=== PATIENT | male | born 1970 | race Caucasian/White ===

== ENCOUNTER 2017-01-25 09:20 | Day surgery (SDC) | payer MEDICAID ==
--- NOTE | 2017-01-24 16:59 | GHP ---
[f rep st] PREOP HISTORY AND PHYSICAL DATE OF ADMISSION: 01/25/2017 ADMISSION DIAGNOSIS: Right testicular mass. HISTORY OF PRESENT ILLNESS: This is a 46-year-old gentleman who has had a right testicular mass disc overed approximately 2 weeks ago. He has had an ultrasound that confirmed he has a solid mass in the testicle. He is admitted for a right radical inguinal orchiectomy. His family history is significa nt that his dad had prostate cancer. PAST MEDICAL HISTORY: Spermatocele. PAST SURGERY: Spinal surgery. MEDICATIONS: None. ALLERGIES: None. FAMILY HISTORY: Prostate cancer. SOCIAL HISTORY: Rare alcohol consumption. Former tobacco smoker. REVIEW OF SYSTEMS: Negative cardiac, respiratory, GI, endocrine, and he has no genitourinary symptom s, and he denies any gynecomastia, back pain, or weight loss. PHYSICAL EXAMINATION: VITAL SIGNS: Stable. CHEST: Clear. HEART: Regular rate and rhythm. ABDOM EN: Normal. No organomegaly, rebound, or guarding. LOWER EXTREMITIES: Normal at the present time. ASSESSMENT/PLAN: He is admitted for a right radical inguinal orchiectomy. He has had a CT scan of t he chest that reveals a small 4-5 mm nodule in the posterior right middle lobe. No suspicious findin gs noted in the retroperitoneal space on the CT scan. On his preop laboratory values, he has had an alpha fetoprotein that is 11.4, and basic metabolic panel is normal with creatinine of 0.7, and remai radha preop labs are pending. He is admitted as an outpatient for the above procedure. /[id number]/MODL
[2017-01-25] MEDS ORDERED: LIDOCAINE 1% 2 ML INJ ID PRN (09:34)
[2017-01-25] MEDS ORDERED: LR 1,000 ML IV ONE (09:34)
[2017-01-25] MEDS ORDERED: BUPIVACAINE 0.5% 30 ML SDV ONE (09:44)
[2017-01-25] MEDS ORDERED: MIDAZOLAM 2 MG/2 ML VIAL IVP ONE (10:34)
--- NOTE | 2017-01-25 10:36 | PDANEPAE ---
ANE History of Present Illness right orchiectomy ANE Past Medical History - Cardiovascular History Hx Hypertension: No Hx Arrhythmias: No Hx Chest Pain: No Hx Coronary Artery / Peripheral Vascular Disease: No Hx CHF / Valvular Disease: No Hx Palpitations: No Cardiovascular History Comment: steady BP - Pulmonary History Hx COPD: No Hx Asthma/Reactive Airway Disease: No Hx Recent Upper Respiratory Infection: No Hx Oxygen in Use at Home: No Hx Sleep Apnea: No Sleep Apnea Screening Result - Last Documented: Negative - Neurologic History Hx Cerebrovascular Accident: No Hx Seizures: No Hx Dementia: No - Endocrine History Hx Diabetes: No - Renal History Hx Renal Disorders: Yes Renal History Comment: R testicular mass - Liver History Hx Hepatic Disorders: No - Neurological & Psychiatric Hx Hx Neurological and Psychiatric Disorders: No - Cancer History Hx Cancer: Yes Cancer History Comment: R testicular mass- cancer seen w/ultrasound - Congenital Disorder History Hx Congenital Disorders: No - GI History Hx Gastrointestinal Disorders: No - Other Health History Other Health History: n/a - Chronic Pain History Chronic Pain: No - Surgical History Prior Surgeries: GENIA for herniated disc w/sedation. wisdom teeth extraction- sedation ANE Review of Systems Review of Systems: - Exercise capacity METS (RN): 4 METS ANE Patient History - Allergies Allergies/Adverse Reactions: No Known Allergies Allergy (Unverified 01/24/17 15:41) - Home Medications Home Medications: NK [No Known Home Meds] 01/24/17 [Last Taken Unknown] - NPO status NPO Status: no food or drink >8 hours NPO Since - Liquids (Date): 01/25/17 NPO Since - Liquids (Time): 08:00 NPO Since - Solids (Date): 01/24/17 NPO Since - Solids (Time): 20:00 - Smoking Hx Smoking Status: Former smoker ANE Labs/Vital Signs - Vital Signs Vital Signs: reviewed preoperatively; see RN documention for details Blood Pressure: 142/88 Heart Rate: 66 Respiratory Rate: 14 O2 Sat (%): 96 Height: 190.5 cm Weight: 107.955 kg ANE Physical Exam - Airway Neck exam: FROM Mallampati Score: Class 1 Mouth exam: normal dental/mouth exam - Pulmonary Pulmonary: no respiratory distress - Cardiovascular Cardiovascular: regular rate and rhythym - ASA Status ASA Status: I ANE Anesthesia Plan Anesthesia Plan: general endotracheal anesthesia
[2017-01-25] MEDS ORDERED: MIDAZOLAM 2 MG/2 ML VIAL ONE (10:37)
[2017-01-25] MEDS ORDERED: ONDANSETRON 4 MG/2 ML VIAL ONE (10:37)
[2017-01-25] MEDS ORDERED: DEXAMETHASONE 4 MG/ML VIAL ONE (10:37)
[2017-01-25] MEDS ORDERED: ROCURONIUM 50 MG/5 ML VIAL ONE (10:37)
[2017-01-25] MEDS ORDERED: ceFAZolin 2 GM/SWFI 2 GM/20 ML SYR IVP ONE (10:37)
[2017-01-25] MEDS ORDERED: fentaNYL 100 MCG/2 ML INJ ONE ×2 (10:38)
[2017-01-25] MEDS ORDERED: PROPOFOL 200 MG/20 ML VIAL ONE (10:38)
--- NOTE | 2017-01-25 10:38 | PDHPUP ---
History & Physical Update H&P update statement: This history and physical update is based on an assessment of the patient which was completed after admission or registration (within 24 hours), but prior to the surgery/procedure. H&P update: H&P reviewed & patient examined, no change in patient's condition since H&P completed
[2017-01-25] MEDS ORDERED: HYDROmorphONE/DILAUDID 1 MG/ML INJ IVP PRN (11:41)
[2017-01-25] MEDS ORDERED: PROMETHAZINE HCL 25 MG/ML INJ IVP PRN (11:41)
[2017-01-25] MEDS ORDERED: MEPERIDINE 25 MG/ML SYR IVP PRN (11:41)
[2017-01-25] MEDS ORDERED: ONDANSETRON 4 MG/2 ML VIAL IVP PRN (11:41)
[2017-01-25] MEDS ORDERED: fentaNYL 100 MCG/2 ML INJ IVP PRN (11:41)
[2017-01-25] MEDS ORDERED: NALOXONE HCL 0.4 MG/ML INJ IVP PRN (11:41)
[2017-01-25] MEDS ORDERED: HYDROmorphONE/DILAUDID 2 MG/ML INJ ONE (11:48)
--- NOTE | 2017-01-25 12:21 | POSTANESTH ---
Post Anesthetic Evaluation Cardiovascular Status: Normal, Stable Respiratory Status: Normal, Stable Level of Consciousness/Mental Status: Can Participate in Eval Pain Control: Adequate, Prn Tx Ordered Nausea/Vomiting Control: Adequate, Prn Tx Ordered Complications Possibly Related to Anesthesia: None Noted
--- NOTE | 2017-01-25 12:32 | POSTOPPROG ---
Post Op Note Date of Operation: 01/25/17 Surgeon: North Liz Anesthesia: LMA Pre-op Diagnosis: rt testis mass Post-op Diagnosis: same Procedure: orchiectomy Inf/Abcess present in the surg proc area at time of surgery?: No EBL: Minimal Specimen(s): sent--dictated
[2017-01-25 12:39] VITALS: O2SAT 97
[2017-01-25 13:22] VITALS: BP 136/93; PULSE 56; RESP 14; TEMP 97.7
--- NOTE | 2017-01-25 19:14 | GOP ---
[f rep st] OPERATIVE REPORT DATE OF OPERATION: 01/25/2017 SURGEON: North Liz MD PREOPERATIVE DIAGNOSIS: Right testicular mass. POSTOPERATIVE DIAGNOSIS: Right testicular mass. PROCEDURE PERFORMED: FINDINGS: ESTIMATED BLOOD LOSS: Less than 5 mL. DESCRIPTION OF PROCEDURE: The patient underwent general anesthesia after appropriate time-out and do cumentation of side and patient name and sterile field provided with Ioban and sterile drapes. Local field injections done with Marcaine and then a skin incision was made, carried down through skin and subcutaneous fat. I could identify the spermatic cord as it exited the external ring and opened up the external ring. At this point I could do a high ligation of the spermatic cord and vas deferens a fter they were . That was done with an 0 Vicryl around the spermatic cord, double ligated w ith 0 Vicryl suture ligature and then the vas deferens was ligated with Vicryl and then the silk was placed at the most distal end of that dissection. We then brought the testicle out of the right ariana scrotum. Hemostasis with clips and electrocautery. At the end of the procedure, the layers were jenifer sed using 3-0 Vicryl for closing the fascia layers in the subcutaneous tissue and then the dermis was closed with 4-0 Monocryl. Dermabond placed. PROCEDURE: Right radical inguinal orchiectomy. COMPLICATIONS: None. SPECIMENS SENT TO PATHOLOGY: Grossly the tumor had an appearance of fish flesh. IMPRESSION: Seminoma grossly. /[id number]/MODL
== END 2017-01-25 13:30 | disposition home or self-care (01) ==
LOC: FSGY 09:20
PROVIDERS: ATTEND Specialist
PROC: 0VT90ZZ Resection of Right Testis, Open Approach (ICD-10-PCS; principal; 2017-01-25 10:45)
DX: C62.11 Malignant neoplasm of descended right testis (principal); R91.1 Solitary pulmonary nodule
CPT/HCPCS: J1100; J1170; J2250; J2405; J2704; J3010

== ENCOUNTER 2017-01-26 22:30 | Emergency (ER) | payer MEDICAID ==
[2017-01-26 22:34] VITALS: BP 139/81; PULSE 75; RESP 18; TEMP 98.2; O2SAT 94
[2017-01-26] MEDS ORDERED: CEPHALEXIN 500 MG CAP PO ONE (22:54)
[2017-01-26] MEDS ORDERED: CEPHALEXIN 500MG PREPACK#4 BTL TAKEHOME ONE (22:54)
--- NOTE | 2017-01-26 22:58 | EDPHY ---
H & P Stated Complaint: sx on R groin 01/25 swelling/redness/pain to site HPI/ROS: Chief complaint: Surgical incisions site pain and redness History of present illness: This is a 46-year-old male who presents to the emergency department complaining of pain and redness at the site of the surgical incision. Patient had surgery yesterday to remove his right testicle secondary to testicular cancer per this was performed by Dr. Liz. He states today's started developing increasing pain at the surgical incisions site with some increasing redness. Reports some discomfort in the scrotum. No skin changes or edema noted. However the wound is not opening up. There is no discharge from the wound. There is no swelling. There is no fever. - Personal History Current Tetanus/Diphtheria Vaccine: Unsure - Medical/Surgical History Hx Asthma: No Hx Chronic Respiratory Disease: No Hx Diabetes: No Hx Cardiac Disease: No Hx Renal Disease: No Hx Cirrhosis: No Hx Alcoholism: No Hx HIV/AIDS: No Hx Splenectomy or Spleen Trauma: No Other PMH: testicular CA, herniated disc, - Social History Smoking Status: Former smoker - Physical Exam Exam: General: Alert, nontoxic Skin: There is a surgical incision in the right inguinal region. There is no dehiscence. No discharge from the wound. There is increasing erythema around the wound extending from the wound. No induration or fluctuance. Genitourinary: There is no discharge from the penis. The penis is unremarkable. The scrotum is unremarkable without erythema or edema to the scrotum itself. There is mild discomfort on palpation of the right side of the scrotum. Left side unremarkable. Constitutional: Initial Vital Signs Temperature (C) 36.8 C 01/26/17 22:31 Heart Rate 75 01/26/17 22:31 Respiratory Rate 18 01/26/17 22:31 Blood Pressure 139/81 H 01/26/17 22:31 O2 Sat (%) 94 01/26/17 22:31 O2 Delivery Mode Room Air Allergies/Adverse Reactions: No Known Allergies Allergy (Verified 01/26/17 22:34) Home Medications: Medication Instructions Recorded Cephalexin [Keflex] 500 mg PO QID 6 Days cap 01/26/17 Medical Decision Making ED Course/Re-evaluation: Patient seen under the supervision of my secondary supervising physician Dr. Temo MacDade. Patient presents to the emergency department for pain and redness around his surgical incisions site. He does appear to be developing a localized cellulitis. No evidence of complications such as dehiscence or abscess formation etc. I have consulted with his Urology group, Dr. Liz's physician biology laboratory assistant. She is comfortable with patient being placed on Keflex. He can be discharged home. Home care is discussed. He is to follow up with Urology next week for recheck. Strict return precautions were given. Patient voiced understanding and agreement with plan. Differential Diagnosis: Included but not limited to infections of multiple etiologies including cellulitis and abscess as well as wound dehiscence and postoperative changes such as serosanguineous fluid collection - Data Points Medications Given: Discontinued Medications Cephalexin (Keflex 500 Mg Prepack#4) 1 btl TAKEHOME EDNOW ONE PRN Reason: Protocol Stop: 01/26/17 22:55 Last Admin: 01/26/17 23:07 Dose: 1 btl Cephalexin HCl (Keflex) 500 mg PO EDNOW ONE PRN Reason: Protocol Stop: 01/26/17 22:55 Last Admin: 01/26/17 23:07 Dose: 500 mg Departure - Departure Disposition: Home, Routine, Self-Care Clinical Impression: Infected incision Qualifiers: Encounter type: initial encounter Qualified Code(s): T81.4XXA - Infection following a procedure, initial encounter Condition: Good Instructions: Cellulitis (ED) Additional Instructions: Follow-up with your urologist next week for recheck Take all antibiotics as prescribed until finished even feeling better If symptoms worsen or new symptoms develop return to the emergency room for recheck Referrals: JOANNE GIORDANO [Other] - As per Instructions Prescriptions: Cephalexin [Keflex] 500 mg PO QID 6 Days cap
== END 2017-01-26 23:13 | disposition home or self-care (01) ==
DX: T81.4XXA Infection following a procedure, initial encounter (principal); Z85.47 Personal history of malignant neoplasm of testis; Z87.891 Personal history of nicotine dependence; Y73.2 Prosthetic and other implants, materials and accessory gastroenterology and urology devices associated with adverse incidents